=== PATIENT | female | born 1990 | race Caucasian/White ===

== ENCOUNTER → 2017-06-02 | Outpatient (CLI) | payer OTHER ==
[2017-06-02 13:01] LABS: BASO % 0.2 % (0.0-1.0); EOS # 0.1 10^3/uL (0.0-0.50); EOS % 0.7 % (0.0-3.0); HEMATOCRIT 34.9 % (36.0-47.0); HEMOGLOBIN 11.8 g/dl (12.0-16.0); IMMATURE GRANULOCYTE % 0.4 % (0-3.0); LYMPH # 1.2 10^3/uL (1.5-6.5); LYMPH % 14.9 % (24.0-44.0); MEAN CORPUSCULAR HGB CONC 33.8 g/dl (32.0-36.5); MEAN CORPUSCULAR VOLUME 82.9 fl (80.0-96.0); MONO # 0.5 10^3/uL (0.0-0.8); MONO % 6.6 % (0.0-5.0); NEUTROPHILS # 6.3 10^3/uL (1.8-7.7); NEUTROPHILS % 77.2 % (36.0-66.0); PLATELET COUNT, AUTOMATED 182 10^3/uL (150-450); RED BLOOD COUNT 4.21 10^6/uL (4.00-5.40); RED CELL DISTRIBUTION WIDTH 13.8 % (11.5-14.5); WHITE BLOOD COUNT 8.1 10^3/uL (4.0-10.0)
[2017-06-02 15:42] LABS: CHLAMYDIA DNA AMPLIFICATION NEGATIVE (NEGATIVE); GC DNA AMPLIFICATION NEGATIVE (NEGATIVE)
[2017-06-03 10:14] LABS: RUBELLA IgG QUALITATIVE IMMUNE (IMMUNE)
[2017-06-03 10:44] LABS: HIV 1&2 SCREEN CENTAUR NEGATIVE (NEGATIVE)
[2017-06-03 10:55] LABS: HBsAg Prenatal NEGATIVE (NEGATIVE)
== END ==
LOC: M SMT 11:11
DX: O30.041 Twin pregnancy, dichorionic/diamniotic, first trimester (principal)
CPT/HCPCS: 86762

== ENCOUNTER → 2017-07-21 | Outpatient (CLI) | payer OTHER | LOC: M RAD 09:46 | DX: O30.042 Twin pregnancy, dichorionic/diamniotic, second trimester (principal); Z3A.17 17 weeks gestation of pregnancy | CPT/HCPCS: 76811 ==

== ENCOUNTER → 2017-09-19 | Outpatient (CLI) | payer OTHER ==
[2017-09-19 11:05] LABS: BASO % 0.4 % (0.0-1.0); EOS # 0.1 10^3/uL (0.0-0.50); HEMATOCRIT 30.1 % (36.0-47.0); HEMOGLOBIN 9.7 g/dl (12.0-15.5); IMMATURE GRANULOCYTE % 0.7 % (0-3.0); LYMPH # 0.8 10^3/uL (1.5-6.5); MEAN CORPUSCULAR HEMOGLOBIN 26.3 pg (27.0-33.0); MEAN CORPUSCULAR HGB CONC 32.2 g/dl (32.0-36.5); MEAN CORPUSCULAR VOLUME 81.6 fl (80.0-96.0); MONO # 0.6 10^3/uL (0.0-0.8); MONO % 7.3 % (0.0-5.0); NEUTROPHILS # 6.8 10^3/uL (1.8-7.7); NEUTROPHILS % 80.6 % (36.0-66.0); PLATELET COUNT, AUTOMATED 165 10^3/uL (150-450); RED BLOOD COUNT 3.69 10^6/uL (4.00-5.40); RED CELL DISTRIBUTION WIDTH 13.6 % (11.5-14.5); WHITE BLOOD COUNT 8.4 10^3/uL (4.0-10.0)
[2017-09-19 11:17] LABS: GLUCOSE CHALLENGE TEST 1 HOUR 90 MG/DL (LESS THAN 140)
== END ==
LOC: M SMT 08:38
DX: O30.042 Twin pregnancy, dichorionic/diamniotic, second trimester (principal); Z3A.00 Weeks of gestation of pregnancy not specified
CPT/HCPCS: 82950

== ENCOUNTER → 2017-09-26 | Outpatient (CLI) | payer OTHER | LOC: M SMT 08:38 | DX: O30.042 Twin pregnancy, dichorionic/diamniotic, second trimester (principal); O32.1XX1 Maternal care for breech presentation, fetus 1; Z3A.26 26 weeks gestation of pregnancy ==

== ENCOUNTER → 2017-10-26 | Outpatient (CLI) | payer MEDICAID | LOC: M RAD 12:44 | DX: O30.043 Twin pregnancy, dichorionic/diamniotic, third trimester (principal); Z3A.30 30 weeks gestation of pregnancy | CPT/HCPCS: 76816 ==

== ENCOUNTER → 2017-11-09 | Outpatient (CLI) | payer MEDICAID ==
[2017-11-09 15:16] LABS: BASO % 0.1 % (0.0-1.0); EOS # 0.1 10^3/uL (0.0-0.50); EOS % 1.2 % (0.0-3.0); HEMATOCRIT 33.8 % (36.0-47.0); IMMATURE GRANULOCYTE % 0.5 % (0-3.0); LYMPH % 10.9 % (24.0-44.0); MEAN CORPUSCULAR HEMOGLOBIN 27.3 pg (27.0-33.0); MEAN CORPUSCULAR HGB CONC 32.5 g/dl (32.0-36.5); MEAN CORPUSCULAR VOLUME 83.9 fl (80.0-96.0); MONO # 0.8 10^3/uL (0.0-0.8); NEUTROPHILS # 7.2 10^3/uL (1.8-7.7); NEUTROPHILS % 78.3 % (36.0-66.0); PLATELET COUNT, AUTOMATED 159 10^3/uL (150-450); RED BLOOD COUNT 4.03 10^6/uL (4.00-5.40); RED CELL DISTRIBUTION WIDTH 16.5 % (11.5-14.5); WHITE BLOOD COUNT 9.2 10^3/uL (4.0-10.0)
== END ==
LOC: M LAB 14:55
DX: O30.043 Twin pregnancy, dichorionic/diamniotic, third trimester (principal)
CPT/HCPCS: 76815

== ENCOUNTER → 2017-11-23 | Outpatient (CLI) | payer MEDICAID | LOC: M RAD 10:37 | DX: O30.043 Twin pregnancy, dichorionic/diamniotic, third trimester (principal); Z3A.34 34 weeks gestation of pregnancy | CPT/HCPCS: 76819 ==

== ENCOUNTER → 2017-11-29 | Outpatient (REF) | payer OTHER, MEDICAID | LOC: M LAB REF 17:12 | DX: O30.043 Twin pregnancy, dichorionic/diamniotic, third trimester (principal) ==

== ENCOUNTER → 2017-11-30 | Outpatient (CLI) | payer MEDICAID | LOC: M RAD 15:48 | DX: O30.043 Twin pregnancy, dichorionic/diamniotic, third trimester (principal) | CPT/HCPCS: 76815 ==

== ENCOUNTER → 2017-12-05 | Outpatient (CLI) | payer MEDICAID | LOC: M RAD 08:46 | DX: O30.043 Twin pregnancy, dichorionic/diamniotic, third trimester (principal); O32.1XX2 Maternal care for breech presentation, fetus 2 | CPT/HCPCS: 76815 ==

== ENCOUNTER 2017-12-12 05:28 | Inpatient (IN) | payer OTHER ==
[2017-12-12 06:11] LABS: HEMATOCRIT 34.3 % (36.0-47.0); HEMOGLOBIN 11.5 g/dl (12.0-15.5); MEAN CORPUSCULAR HEMOGLOBIN 27.1 pg (27.0-33.0); MEAN CORPUSCULAR HGB CONC 33.5 g/dl (32.0-36.5); MEAN CORPUSCULAR VOLUME 80.7 fl (80.0-96.0); PLATELET COUNT, AUTOMATED 187 10^3/uL (150-450); RED BLOOD COUNT 4.25 10^6/uL (4.00-5.40); RED CELL DISTRIBUTION WIDTH 14.9 % (11.5-14.5); WHITE BLOOD COUNT 9.6 10^3/uL (4.0-10.0)
[2017-12-12] MEDS ORDERED: BICITRA 30ML SOLN UDC As Ordered (07:06)
[2017-12-12] MEDS ORDERED: ceFAZolin 2 GM/D5W 50 ML IV BAG (J0690 PER 500MG) As Ordered (07:06)
[2017-12-12] MEDS: LACTATED RINGER'S 1000 ML IV (07:12)
[2017-12-12] MEDS ORDERED: LR 1,000 ML IV (07:12)
[2017-12-12] MEDS ORDERED: MORPHINE PRES-FREE INJ 10 MG/10 ML VIAL (J2274) As Ordered (07:12)
[2017-12-12] MEDS ORDERED: OXYTOCIN INJ 10 UNITS/ML VIAL (J2590) As Ordered ×6 (07:20→08:30)
[2017-12-12] MEDS ORDERED: ONDANSETRON 4MG/2ML VIAL (J2405) As Ordered (07:21)
[2017-12-12] MEDS: BICITRA 30ML SOLN UDC PO (07:30)
[2017-12-12] MEDS ORDERED: NALOXONE INJ 0.4 MG/1 ML VIAL (J2310) IV ×2 (07:54)
[2017-12-12] MEDS ORDERED: NALBUPHINE HCL 10 MG/ML AMP (J2300) IV ×2 (07:54→09:30)
[2017-12-12] MEDS ORDERED: ONDANSETRON 4MG/2ML VIAL (J2405) IV ×3 (07:54→09:30)
[2017-12-12] MEDS ORDERED: ePHEDrine SULFATE 25 MG/5 ML(5MG/ML) SYRINGE As Ordered (08:02)
[2017-12-12] MEDS ORDERED: PHENYLephrine HCL 500 MCG/5 ML (100MCG/ML) SYRINGE (J2370) As Ordered (08:02)
[2017-12-12] MEDS: LR 1,000 ML IV ×3 (08:49→16:49)
[2017-12-12] MEDS ORDERED: MEASLES,MUMPS,RUBELLA VACCINE INJ (MMR-II) (90707) SC (09:00)
[2017-12-12] MEDS: PRENATAL VITAMINS CHEWABLE TABLET PO (09:00)
[2017-12-12] MEDS ORDERED: MOM 30ML SUSPENSION UDC PO (09:00)
[2017-12-12] MEDS ORDERED: RHOGAM 300 MCG (1500 IU) INJ (J2790) IM (09:00)
[2017-12-12] MEDS: OXYTOCIN DRIP 30 UNITS in APPROPRIATE DILUENT 1 EA IV (09:00)
[2017-12-12] MEDS: ePHEDrine SULFATE 25 MG/5 ML(5MG/ML) SYRINGE IV ×3 (09:30→09:36)
[2017-12-12] MEDS ORDERED: KETOROLAC 30 MG/ML VIAL (J1885) As Ordered (09:32)
[2017-12-12] MEDS: KETOROLAC 30 MG/ML VIAL (J1885) IV ×3 (09:44→21:55)
[2017-12-12] MEDS: METOCLOPRAMIDE INJ 10MG/2ML VIAL (J2765) IV (11:43)
[2017-12-12] MEDS ORDERED: ADACEL/BOOSTRIX VACCINE (DIPHTH/PERTUSS/ACELL/TETANUS)0.5ML SYR (90715) IM (14:45)
[2017-12-12] MEDS: PERCOCET 5MG/325MG TAB PO (17:45)
[2017-12-13] MEDS: LR 1,000 ML IV ×2 (00:49→08:49)
[2017-12-13] MEDS: KETOROLAC 30 MG/ML VIAL (J1885) IV (04:19)
[2017-12-13 06:59] LABS: MEAN CORPUSCULAR HEMOGLOBIN 27.4 pg (27.0-33.0); MEAN CORPUSCULAR HGB CONC 33.3 g/dl (32.0-36.5); MEAN CORPUSCULAR VOLUME 82.1 fl (80.0-96.0); PLATELET COUNT, AUTOMATED 133 10^3/uL (150-450); RED BLOOD COUNT 3.29 10^6/uL (4.00-5.40); RED CELL DISTRIBUTION WIDTH 14.9 % (11.5-14.5); WHITE BLOOD COUNT 9.1 10^3/uL (4.0-10.0)
[2017-12-13] MEDS: PRENATAL VITAMINS CHEWABLE TABLET PO (09:08)
[2017-12-13] MEDS: PERCOCET 5MG/325MG TAB PO ×3 (09:09→20:09)
[2017-12-13] MEDS: IBUPROFEN 800 MG TAB PO ×2 (11:47→20:10)
[2017-12-14] MEDS: IBUPROFEN 800 MG TAB PO (03:34)
[2017-12-14] MEDS: DOCUSATE SODIUM 100 MG CAP PO (03:34)
[2017-12-14] MEDS: BISACODYL 5 MG TAB PO (10:33)
[2017-12-14] MEDS: PRENATAL VITAMINS CHEWABLE TABLET PO (10:33)
[2017-12-14] MEDS: PERCOCET 5MG/325MG TAB PO (10:34)
== END 2017-12-14 14:45 | disposition home or self-care (01) | DRG 540 ==
LOC: M LDI 05:28 → M OBS 10:42
PROVIDERS: Specialist
PROC: 10D00Z1 Extraction of Products of Conception, Low, Open Approach (ICD-10-PCS; principal; 2017-12-12 07:30)
PROC: 0UB70ZZ Excision of Bilateral Fallopian Tubes, Open Approach (ICD-10-PCS; 2017-12-12 07:30)
DX: O30.043 Twin pregnancy, dichorionic/diamniotic, third trimester (principal); Z37.2 Twins, both liveborn; O32.8XX0 Maternal care for other malpresentation of fetus, not applicable or unspecified; Z3A.38 38 weeks gestation of pregnancy; Z30.2 Encounter for sterilization

== ENCOUNTER → 2018-04-19 | Outpatient (CLI) | payer OTHER ==
[~2018-04-19] MED LIST: FERR325T3 PO; IBUP1TAB7 PO; IBUP80TA PO; OXYC1TAB23 PO; Prenatal Vitamins PO; TYLE167L PO
--- NOTE | 2018-04-20 22:55 | REP ---
Clinical: Thyroid disease. Technique: Real time rockwell scale and color evaluation using linear high frequency transducer. Findings: The thyroid gland is heterogeneous and enlarged. The isthmus measures 9 mm in width. The right lobe measures 6.2 x 2.4 x 2.0 cm without nodule or cyst. The left lobe measures 6.0 x 2.6 x 1.9 cm and includes 1.0 x 0.6 x 0.9 cm hypoechoic mid pole nodule and 0.7 x 0.4 x 0.5 cm hyperechoic lower pole nodule which are otherwise nonspecific in appearance. Impression: Diffusely heterogeneous mildly enlarged thyroid gland with two left-sided nonspecific hyperechoic nodules. Electronically Signed by Neto Mcbride MD 04/20/2018 10:46 P
== END ==
LOC: M RAD 12:03
PROVIDERS: ATTEND Family Medicine
DX: Z86.39 Personal history of other endocrine, nutritional and metabolic disease (principal)

== ENCOUNTER → 2018-05-20 | Outpatient (CLI) | payer OTHER, MEDICAID ==
[2018-05-20 17:54] LABS: BASO % 0.3 % (0.0-1.0); EOS # 0.2 10^3/uL (0.0-0.50); EOS % 2.6 % (0.0-3.0); HEMATOCRIT 37.7 % (36.0-47.0); HEMOGLOBIN 12.2 g/dl (12.0-15.5); LYMPH # 1.5 10^3/uL (1.5-6.5); LYMPH % 23.3 % (24.0-44.0); MEAN CORPUSCULAR HEMOGLOBIN 27.2 pg (27.0-33.0); MEAN CORPUSCULAR HGB CONC 32.4 g/dl (32.0-36.5); MONO # 0.5 10^3/uL (0.0-0.8); MONO % 7.8 % (0.0-5.0); NEUTROPHILS # 4.3 10^3/uL (1.8-7.7); NEUTROPHILS % 65.8 % (36.0-66.0); PLATELET COUNT, AUTOMATED 228 10^3/uL (150-450); RED BLOOD COUNT 4.49 10^6/uL (4.00-5.40); WHITE BLOOD COUNT 6.5 10^3/uL (4.0-10.0)
[2018-05-20 17:57] LABS: FREE T4 0.7 NG/DL (0.76-1.46); THYROID STIMULATING HORMONE 11.5 uIU/ML (0.358-3.740)
== END ==
LOC: M WUC 13:11
PROVIDERS: ATTEND Family Medicine
DX: Z00.00 Encounter for general adult medical examination without abnormal findings (principal); D64.9 Anemia, unspecified; Z86.39 Personal history of other endocrine, nutritional and metabolic disease

== ENCOUNTER 2022-01-22 13:28 | Emergency (ER) | payer OTHER, MEDICAID ==
[~2022-01-22] VITALS: Ht 177.8 cm; Wt 85.1 kg
[2022-01-22] MEDS ORDERED: CEFD300C41 (13:38)
[2022-01-22] MEDS ORDERED: AZEL1SPR3 (13:38)
[2022-01-22] MEDS ORDERED: CIPR7.5D5 OTIC (16:29)
[2022-01-22] MEDS ORDERED: CLAR1TAB13 PO (16:29)
[2022-01-22] MEDS ORDERED: AZIT-12 PO (16:29)
[2022-01-22 16:37] VITALS: BP 132/69
== END 2022-01-22 16:40 | disposition home or self-care (01) ==
LOC: M ED 13:28
DX: H66.93 Otitis media, unspecified, bilateral (principal); E03.9 Hypothyroidism, unspecified